=== PATIENT | female | born 1960 | race African-American/Black ===

== ENCOUNTER → 2019-06-06 | Outpatient (CLI) | payer MEDICARE | END | disposition home or self-care (01) | LOC: RAH 14:35 | PROVIDERS: ATTEND Family Medicine | DX: R22.42 Localized swelling, mass and lump, left lower limb (principal) | CPT/HCPCS: 93970 ==

== ENCOUNTER → 2019-08-19 | Outpatient (CLI) | payer MEDICARE | END | disposition home or self-care (01) | LOC: RAH 12:53 | PROVIDERS: ATTEND Family Medicine | DX: R22.43 Localized swelling, mass and lump, lower limb, bilateral (principal) | CPT/HCPCS: 93970 ==